=== PATIENT | female | born 2000 ===

== ENCOUNTER → 2019-02-23 | Outpatient (CLI) | payer OTHER ==
--- NOTE | 2019-02-23 16:06 | XR ---
EXAMINATION TYPE: XR chest 2V DATE OF EXAM: 02/23/2019 COMPARISON: NONE TECHNIQUE: PA and lateral views submitted. HISTORY: TB screening FINDINGS: The lungs are clear and there is no pneumothorax, pleural effusion, or focal pneumonia. No pleural thickening or calcification. No parenchymal or lymph node calcification. No overt failure. IMPRESSION: 1. No acute process.
== END | disposition home or self-care (01) ==
LOC: RADXRMAIN 15:28
PROVIDERS: ATTEND Dermatology MOHS-Micrographic Surgery
DX: Z01.818 Encounter for other preprocedural examination (principal)
CPT/HCPCS: 71046